=== PATIENT | female | born 1970 | race Asian ===

== ENCOUNTER 2020-03-23 14:46 | Outpatient (REF) | payer OTHER, SELFPAY | END 2020-03-23 14:47 | disposition home or self-care (01) | LOC: HO.LNP 14:46 | PROVIDERS: Visit Provider Hospitalist | DX: Z20.828 Contact with and (suspected) exposure to other viral communicable diseases (principal); B34.9 Viral infection, unspecified | CPT/HCPCS: U0003 ==

== ENCOUNTER 2020-04-14 10:21 | Outpatient (REF) | payer OTHER, SELFPAY | END 2020-04-14 10:22 | disposition home or self-care (01) | LOC: HO.HMGCLDS 10:21 | PROVIDERS: Visit Provider Internal Medicine | DX: Z20.828 Contact with and (suspected) exposure to other viral communicable diseases (principal) | CPT/HCPCS: C9803; U0003 ==